=== PATIENT | male | born 1990 | race African-American/Black ===

== ENCOUNTER 2019-01-25 14:04 | Emergency (ER) | payer OTHER ==
[~2019-01-25] VITALS: Ht 182.9 cm; Wt 63.5 kg
[~2019-01-25 14:04] MED LIST: ACCUNEB SO1.25 MG/1; CEPHALEXIN 500500 M3 PO; CIPROFLOXIN HC2.5 M1 OTIC; DOXYCYCLINE 10100 MG PO; HIV MED; HYDROCODONE-AP1 EAC6 PO; MEDROLDOSEPACK PO; NEURONTIN 300300 M1 PO; ZOVIRAX800 MG PO; ZPAK PO
[2019-01-25] MEDS ORDERED: BUTALB-APAP-CA1 EACH PO (15:50)
[2019-01-25 16:00] VITALS: BP 128/76
== END 2019-01-25 16:01 | disposition home or self-care (01) ==
LOC: M.ERS 14:04
DX: G43.909 Migraine, unspecified, not intractable, without status migrainosus (principal); F17.210 Nicotine dependence, cigarettes, uncomplicated; H57.10 Ocular pain, unspecified eye; R11.2 Nausea with vomiting, unspecified; Z88.0 Allergy status to penicillin; Z88.5 Allergy status to narcotic agent

== ENCOUNTER 2019-07-27 13:42 | Emergency (ER) | payer OTHER ==
[~2019-07-27] VITALS: Ht 182.9 cm; Wt 68.0 kg
[~2019-07-27 13:42] MED LIST changes: +BUTALB-APAP-CA1 EACH PO
[2019-07-27 13:50] VITALS: BP 140/92
[2019-07-27] MEDS ORDERED: BIKTARVY 50-201 EACH PO (13:52)
[2019-07-27] MEDS ORDERED: TRAMADOL 50 MG50 MG PO (14:16)
[2019-07-27] MEDS ORDERED: CLEOCIN HCL300 MG PO (14:16)
== END 2019-07-27 14:19 | disposition home or self-care (01) ==
LOC: M.ERS 13:42
DX: K02.9 Dental caries, unspecified (principal); G43.909 Migraine, unspecified, not intractable, without status migrainosus; F17.210 Nicotine dependence, cigarettes, uncomplicated; Z88.0 Allergy status to penicillin; Z88.6 Allergy status to analgesic agent; Z88.8 Allergy status to other drugs, medicaments and biological substances

== ENCOUNTER 2021-01-23 20:23 | Emergency (ER) | payer OTHER ==
[~2021-01-23] VITALS: Ht 182.9 cm; Wt 63.5 kg
[~2021-01-23 20:23] MED LIST changes: +BIKTARVY 50-201 EACH PO; +CLEOCIN HCL300 MG PO; +TRAMADOL 50 MG50 MG PO
[2021-01-23 22:59] VITALS: BP 130/88
== END 2021-01-23 22:59 | disposition left against medical advice (07) ==
LOC: M.ERS 20:23
DX: Z53.21 Procedure and treatment not carried out due to patient leaving prior to being seen by health care provider (principal); Z20.822 Contact with and (suspected) exposure to COVID-19